=== PATIENT | female | born 1955 | race Caucasian/White ===

== ENCOUNTER → 2019-12-24 11:38 | Outpatient (CLI) | payer SELFPAY ==
[2016-12-26 09:17] VITALS: BMI 48.2
[2019-12-24 15:56] LABS: Anion Gap 7 (5-15); BUN 18 mg/dL (7-18); BUN/Creat Ratio 12.6 RATIO (10-20); Calcium,Total 9.5 mg/dL (8.5-10.1); Chloride 107 mmol/L (98-107); Cholesterol 359 mg/dL (200); Creatinine, Serum 1.43 mg/dL (0.55-1.02); EST Glomerular Filtration Rate 39 mL/min (>60); Est Glom Filt Rate - Afr Amer 47 mL/min (>60); Free T3 0.6 pg/mL (2.18-3.98); Glucose 126 mg/dL (74-106); High Density Lipoprotein 96 mg/dL; Potassium 3.6 mmol/L (3.5-5.1); Sodium Level 139 mmol/L (136-145); Triglycerides 199 mg/dL; Very Low Density Lipoprotein 40 mg/dL (5-40)
== END ==
PROVIDERS: PCP Family Medicine; Referring Provider Family Medicine; Visit Provider Family Medicine
DX: E03.9 Hypothyroidism, unspecified (principal); I10 Essential (primary) hypertension
CPT/HCPCS: 36415; 80048; 80061; 84439; 84443; 84481

== ENCOUNTER 2019-12-25 23:51 | Emergency (ER) | payer OTHER, SELFPAY ==
[2019-12-25 23:52] VITALS: BP 207/119; PULSE 80; RESP 16; TEMP 36.2; O2SAT 97; BMI 51.6
--- NOTE | 2019-12-26 01:00 | CT_ITS ---
STUDY: CT BRAIN WITHOUT CONTRAST REASON FOR EXAM: Female, 64 years old. HEADACHE AND CONGESTION -- HX:HTN,ASTHMA RADIATION DOSAGE (If Supplied By Facility): CTDIvol = ( 44.99 ) mGy, DLP = ( 812.98 ) mGycm TECHNIQUE: Transaxial CT imaging of the brain was performed without administration of intravenous contrast material. Individualized dose optimization techniques were used for this CT. COMPARISON: No relevant priors. FINDINGS: Normal soft tissue structures. Normal calvarium. Normal size ventricles and extra-axial spaces for the patient''s age. Normal white matter tracts of the cerebral hemispheres. Normal basal ganglia and thalami. Normal brainstem. Normal cerebellum. There is no intracranial hemorrhage. There are no findings of an acute ischemic infarction. Normal visualized paranasal sinuses. CT/Brain/Head without Contrast IMPRESSION: Normal unenhanced CT scan of the brain. Electronically Signed: Shimon Brar MD at 1:47 EDT , Service support ,
--- NOTE | 2019-12-26 01:00 | CT_ITS ---
STUDY: CT FACIAL BONES WITHOUT CONTRAST REASON FOR EXAM: Female, 64 years old. HEADACHE AND CONGESTION -- HX:HTN,ASTHMA RADIATION DOSAGE (If Supplied By Facility): CTDIvol = ( 29.38 ) mGy, DLP = ( 584.19 ) mGycm TECHNIQUE: The patient was scanned in a multi detector CT scanner. Sagittal and coronal images were reconstructed. Individualized dose optimization techniques were used for this CT. COMPARISON: None. FINDINGS: Normal soft tissue structures. Normal orbital multani and orbital contents. Normal nasal bones and anterior nasal spine. Normal facial bones. There is no demonstrated fracture. Normal visualized paranasal sinuses. CT/Sinus/Facial Bone IMPRESSION: Normal unenhanced CT of the facial bones. Electronically Signed: Shimon Brar MD at 1:39 EDT , Service support ,
--- NOTE | 2019-12-26 01:13 | ED.DCSUM_ITS ---
History of Present Illness Chief Complaint: Headache Informant: Patient, Family Onset: Today Context: Gradual Timing: Continuous Quality: Dull Location: top of head Current Severity: Gone Maximum Severity: Severe Worsened by: unk; nothing in particular Relieved by: ? by tylenol/motrin she took Associated Symptoms: Nausea, Sinus Pressure, Photophobia. Negative for: Fever, Vomiting, Sore Throat, Numbness, Visual Changes, Blurred Vision, Visual Loss Injury: - - NO injury Narrative: Patient states that she has been having sinus congestion, facial pressure, without rhinorrhea for about 3 weeks causing off and on headaches on top of her head in addition to pain behind her nose. Today, the headache was especially severe and she states it was the worst headache she ever had. She saw her doctor yesterday, in addition to today after she had the severe headache that currently is gone. She states as a result, blood work was done for thyroid function because she stopped taking the medication months ago along with her blood pressure medication, and told that her thyroid hormone was very low and she needed to take it, so she is now back on her thyroid medication, and she was told that the headaches were probably related to her low thyroid. She was additionally placed on a Z-Sreedhar in case she had a bacterial sinusitis, presumably. She has taken 2 doses of that so far. She denies any neurologic symptoms along with her headaches, such as vision changes, focal peripheral neurologic symptoms, loss of consciousness, trouble speaking. In discussing all this with the patient, she agrees that she feels like she has been having sinus symptoms, which she states she gets annually around this time. She has also been using Afrin with some relief temporarily of the sinus symptoms and headache. Since she does not have a headache right now, I discussed the likelihood that her sinus congestion is causing her headaches, and asked if she wanted to discuss anything else. Daughter suggested that she may be needed a CT scan, which I told the patient I was happy to do, then she said that she did not have insurance and did not want that. - Past Medical History (1) Renal insufficiency Status: Chronic (2) Asthma Status: Chronic (3) Hypertension Status: Chronic (4) Hypothyroidism Status: Chronic (5) Pre-diabetes Status: Chronic Past Medical History - Allergies and Home Meds Allergies/Adverse Reactions: Allergies codeine Allergy (Verified 12/25/19 23:51) Unknown prochlorperazine edisylate [From Compazine] Allergy (Verified 12/25/19 23:51) Anaphylaxis prochlorperazine maleate [From Compazine] Allergy (Verified 12/25/19 23:51) Anaphylaxis Penicillins Adverse Reaction (Verified 12/25/19 23:51) Other Primary Care Physician: Bruce De La Garza MD [Primary Care Provider] - Surgical History: cholecystectomy, hysterectomy, total knee arthroplasty Lives: Alone Smoking Status: Never smoker Alcohol: None Drugs: None - Family History Maternal Family History: Reports: No pertinent history Paternal Family History: Reports: No pertinent history Review of Systems General: Denies: Chills, Fever, Sweats Eyes: Reports: - - photophobia. Denies: Visual changes - bilaterally, Diplopia ENT: Denies: Bilateral ear pain, Rhinorrhea - no runny nose due to so congested, Sore throat Cardiovascular: Denies: Chest pain, Palpitations Respiratory: Denies: Dyspnea, Cough, Dyspnea on exertion Gastrointestinal: Reports: Nausea. Denies: Abdominal pain, Vomiting, Diarrhea, Melena, Hematochezia Genitourinary: Denies: Dysuria, Hematuria, Frequency Musculoskeletal: Reports: Swelling - BLE. Denies: Myalgias, Neck pain, Extremity Pain Skin: Denies: Rash, Wounds Neurological: Reports: Headache. Denies: Weakness, Numbness Physical Exam Vital Signs/Narrative: Vital Signs Temp Pulse Resp BP Pulse Ox 12/25/19 23:52 97.2 F L 80 16 207/119 H 97 Inital Vital Signs reviewed: Yes General: Well nourished, Well developed, Obese, - - NAD Head: NC, AT. Negative for: Temporary Artery Tenderness Eyes: Perrl, EOMI ENT: Moist mucous membranes, No rhinorrhea, TM's clear, Sinus tenderness - ethmoid and frontal bilat, - - Bilateral nasal turbinate edema without purulent discharge or other discharge or other lesion. Posterior oropharynx clear. Neck: Supple, No Lymphadenopathy, Nontender Cardiovascular: Regular rate, Regular rhythm, No murmurs Respiratory: No distress, CTA bilaterally, Chest nontender Abdomen: Soft, Nontender, Nondistended, Normal bowel sounds Back: Nontender, Normal Inspection. Negative for: CVA tenderness Extremities: Nontender, No edema Skin: Normal color, No rash, No Trauma Neuro: Alert, Oriented x3, Cranial nerves II-XII grossly intact, Normal Strength, Normal Sensation, Normal DTR, Normal Gait Psychological: Normal affect Diagnostic/Tx/Re-eval Impressions Brain CT 12/26/19 01:00 IMPRESSION: Normal unenhanced CT scan of the brain. Electronically Signed: Shimon Brar MD at 1:47 EDT , Service support , Facial/Sinus 12/26/19 01:00 IMPRESSION: Normal unenhanced CT of the facial bones. Electronically Signed: Shimon Brar MD at 1:39 EDT , Service support , 12/26/19 01:00 Brain/Head without Contrast [CT] Stat Sinus/Facial Bone [CT] Stat Laboratory Results 12/26/19 00:15 WBC 5.8 RBC 4.78 Hgb 14.3 Hct 43.4 MCV 90.8 MCH 29.9 MCHC 32.9 RDW Std Deviation 48.2 H RDW Coeff of David 14.6 Plt Count 286 MPV 9.8 Immature Gran % (Auto) 0.900 Neut % (Auto) 61.0 Lymph % (Auto) 28.1 Jefferson % (Auto) 5.5 Eos % (Auto) 3.6 Baso % (Auto) 0.9 Absolute Neuts (auto) 3.5 Absolute Lymphs (auto) 1.63 Nucleated RBC % 0 - Medical Decision Making After patient refusing CT scan, and daughter wanting it, I left the room and told them to talk about it and I would return. We had more discussion later and I talked with the daughter alone. She is concerned that the patient is disoriented at time and acting funny, which is not like her. Also that she discontinued her medications for months because somebody told her to do so. This includes lisinopril 20 mg and her thyroid medication which she is now taking again. Her blood pressure was very high when she was here in triage, 207. On recheck it is in the 170s. I told the patient that I thought she should have a CT scan given all of this, and she was amenable to it I had her brain and sinuses scanned. They returned negative/normal. I added a CBC, it returned normal. She had a BMP that showed mild renal insufficiency a little worse than usual, and thyroid function performed yesterday, I reviewed those and did not repeat those. She was given Reglan because she had retro-orbital pain on the left, that improved after Reglan. I discussed with the patient if she thinks she is feeling confused or disoriented, she states adamantly no. I asked her if she was having any hallucinations she states no. She states over and over that God has rebuilt her ever since her 3 years ago, she is walking now when she was not able to prior to his , these are some of the things that the daughter is concerned about, saying that she is not mentally right. We discussed the possibility that her blood pressure could be related, but there is no sign of a lacune, or other stroke, or white-moffett matter differentiation problems on CT, and her blood pressure is not life-threatening high right now. She states that indeed her doctor did restart her on her lisinopril within the last 2 days. At this time, as I discussed with the daughter, I have no reason to admit her or to pink slipped her. It is unknown if there is something psychiatrically abnormal here, or if her blood pressure is related, or if this is her new normal. However, one of the concerning things the daughter said was that the patient was suggesting that someone was doing surgery on her in the middle of the night repeatedly. I asked the patient if she was having any hallucinations or thought she was disoriented, and she states no to all of that. I have no reason to pink slip her right now legally, and medically I see no reason to admit her to the hospital, her blood pressure will likely come down as she stays on her lisinopril for at least the next few days, it is unknown what it was in the office. I discussed all this with the daughter she understands, also discussed it with Dr. Kain Rush who was on-call for Dr. De La Garza, will pass along and agrees at the patient to be seen in the next week or 2 for at least a blood pressure recheck, rather than 6 months from now. With regards to her sinus congestion, I think some of it at least is related to her continuing to use Afrin having some rebound congestion, I recommend stopping that, and using Flonase daily, and nothing else for her congestion right now. I advised that she could probably discontinue the azithromycin but that is up to her. ED Disposition - Plan for ED Patient: Disposition: Home or Assisted Living Diagnosis: Accelerated hypertension, Cephalgia, Hypothyroidism Instructions: ED Headache Unspecified, ED Hypothyroidism Referrals: Bruce De La Garza MD [Primary Care Provider] - (Within the next week; call for appointment)
[2019-12-26] MEDS: Metoclopramide 10 MG/2 ML Vial 5 MG IV (01:15)
[2019-12-26 01:28] LABS: Absolute Lymphocyte Count 1.63 X10^3/uL (0.83-4.51); Absolute Neutrophil Count 3.5 X10^3/uL (2.0-7.7); Basophil# 0.05 X10^3/uL; Basophil% 0.9 % (0-1); Eosinophil# 0.21 X10^3/uL; Eosinophils% 3.6 % (0-5); Hematocrit 43.4 % (37-47); Hemoglobin 14.3 g/dL (12.0-15.0); Lymphocyte # 1.63 X10^3/ul (4.0); Lymphocyte % 28.1 % (19-41); Mean Corp Hgb Conc 32.9 g/dL (32-36); Mean Corpuscular Hgb 29.9 pg (27.0-32.0); Mean Corpuscular Volume 90.8 fL (81-99); Mean Platelet Vol. 9.8 fl (6.2-12.0); Monocyte# 0.32 X10^3/uL; Monocyte% 5.5 % (0-10); NRBC Flagged by Analyzer 0 % (0-5); Neutrophil # 3.54 X10^3/uL (2.7-7.7); Platelet Count 286 K/mm3 (150-450); RBC Distribution Width CV 14.6 % (11.6-14.6); RBC Distribution Width SD 48.2 fl (35.1-43.9); Red Blood Count 4.78 M/mm3 (4.2-5.4); White Blood Count 5.8 K/mm3 (4.4-11.0)
[2019-12-26 01:32] VITALS: BP 171/77
[2019-12-26 02:27] VITALS: BP 173/80; PULSE 78; RESP 16; O2SAT 97
== END 2019-12-26 02:36 | disposition home or self-care (01) ==
PROVIDERS: Emergency Provider Emergency Medicine; PCP Family Medicine
DX: I10 Essential (primary) hypertension (principal); R51.9 Headache, unspecified; E03.9 Hypothyroidism, unspecified; Z91.14 Patient's other noncompliance with medication regimen; E66.9 Obesity, unspecified; R73.03 Prediabetes; N28.9 Disorder of kidney and ureter, unspecified; J45.909 Unspecified asthma, uncomplicated; Z90.49 Acquired absence of other specified parts of digestive tract; Z79.82 Long term (current) use of aspirin; Z79.84 Long term (current) use of oral hypoglycemic drugs; Z79.899 Other long term (current) drug therapy
CPT/HCPCS: 36415; 70450; 70486; 85025; 96374; 99282; 99285; A4216

== ENCOUNTER → 2020-06-23 12:39 | Outpatient (CLI) | payer SELFPAY ==
[2020-06-23 15:40] LABS: AST(SGOT) 13 U/L (15-37); Alanine Aminotransfer ALT/SGPT 25 U/L (13-56); Albumin, Serum 3.6 g/dL (3.2-5.0); Alkaline Phosphatase 78 U/L (45-117); Anion Gap 2 (5-15); BUN 24 mg/dL (7-18); BUN/Creat Ratio 21.4 RATIO (10-20); Calcium,Total 9.3 mg/dL (8.5-10.1); Chloride 109 mmol/L (98-107); Cholesterol 212 mg/dL (200); Creatinine, Serum 1.12 mg/dL (0.55-1.02); EST Glomerular Filtration Rate 52 mL/min (>60); Est Glom Filt Rate - Afr Amer 63 mL/min (>60); Free T3 2.5 pg/mL (2.18-3.98); Globulin 3.7 g/dL (2.2-4.2); Glucose 93 mg/dL (74-106); High Density Lipoprotein 64 mg/dL; Potassium 4.8 mmol/L (3.5-5.1); Protein, Total 7.3 g/dL (6.4-8.2); Sodium Level 136 mmol/L (136-145); T4 Free Direct 1.45 ng/dL (0.76-1.46); Thyroid Stim Hormone (TSH) 0.32 uIU/mL (0.358-3.74); Triglycerides 160 mg/dL; Very Low Density Lipoprotein 32 mg/dL (5-40)
== END ==
PROVIDERS: PCP Family Medicine; Referring Provider Family Medicine; Visit Provider Family Medicine
DX: B35.1 Tinea unguium (principal); E03.9 Hypothyroidism, unspecified; I10 Essential (primary) hypertension
CPT/HCPCS: 36415; 80053; 80061; 84439; 84443; 84481

== ENCOUNTER → 2022-02-23 | Outpatient (CLI) | payer MEDICARE, SELFPAY ==
[2022-02-23 15:48] LABS: Anion Gap 10 (5-15); BUN 17 mg/dL (7-18); BUN/Creat Ratio 11.7 RATIO (10-20); Calcium,Total 9.9 mg/dL (8.5-10.1); Chloride 104 mmol/L (98-107); Cholesterol 329 mg/dL (200); Creatinine, Serum 1.45 mg/dL (0.55-1.02); EST Glomerular Filtration Rate 38 mL/min (>60); Est Glom Filt Rate - Afr Amer 46 mL/min (>60); Free T3 0.9 pg/mL (2.18-3.98); Glucose 151 mg/dL (74-106); High Density Lipoprotein 100 mg/dL; Sodium Level 139 mmol/L (136-145); T4 Free Direct 0.22 ng/dL (0.76-1.46); Triglycerides 149 mg/dL; Very Low Density Lipoprotein 30 mg/dL (5-40)
== END | disposition home or self-care (01) ==
LOC: MFPLAB 13:52
PROVIDERS: PCP Family Medicine; Referring Provider Family Medicine; Visit Provider Family Medicine
DX: I10 Essential (primary) hypertension (principal); E03.9 Hypothyroidism, unspecified
CPT/HCPCS: 36415; 80048; 80061; 84439; 84443; 84481

== ENCOUNTER → 2023-03-13 | Outpatient (CLI) | payer SELFPAY ==
--- OUTSIDE RECORDS SUMMARY | 2023-03-13 13:36 | XMS RPT_ITS | CCD ---
Author Name Unknown Address [address] [place] [address] Organization [facility] Care Team Providers Care Care Coordination Manager Name Role Phone Clifford Sherman Unavailable GarciaEliza sena Johnny Unavailable Allergies Allergy Classification Reported Allergen(s) Allergy Type Date of Onset Reaction(s) Facility (3 sources) acetaminophen / codeine Drug Allergy 4 [facility] Work Phone: (3 sources) aspirin Drug Allergy [facility] Work Phone: (3 sources) cortisone Drug Allergy [facility] Work Phone: (3 sources) penicillin Drug Allergy [facility] Work Phone: (3 sources) prochlorperazine Drug Allergy 4 [facility] Work Phone: Medications Completed/Discontinued Medications Medication Drug Class(es) Dates Sig (Normalized) Sig (Original) 200 actuat albuterol 0.09 mg/actuat metered dose inhaler (3 sources) beta2-Adrenergic Agonist PROAIR HFA 108 (90 Base) MCG/ACT AERS 2 puffs ALBUTEROL SULFATE [id number] Ana Hubbard ENVIRONMENTAL EPIDEMIOLOGIST cefadroxil 1000 mg oral tablet (5 sources) Cephalosporin Antibacterial Start: 03-09-2014 End: 02-07-2017 CEFADROXIL 1 GM TABS one twice daily CEFADROXIL [id number] Denae Kam MD DIPHENHYDRAMINE HCL TABS (5 sources) Histamine-1 Receptor Antagonist End: 02-07-2017 BENADRYL TABS q every night prn DIPHENHYDRAMINE HCL TABS [id number] Clifford Sherman Problems Active Problems Problem Classification Problem Date Documented Da te Episodic/Chronic Acute and unspecified renal failure (6 sources) Renal failure syndrome; Translations: [Disorder of kidney and ureter, unspecified] Onset: 03-09-2014 Resolved: 03-11-2014 03-11-2014 Chronic Joint disorders and dislocations; trauma-related (3 sources) Loose body in knee; Translations: [Loose body in knee, unspecified knee] Onset: 01-13-2014 01-14-2014 Chronic Osteoarthritis (7 sources) Localized, primary osteoarthritis; Translations: [Osteoarthritis of knee] Onset: 01-13-2014 02-08-2017 Chronic Other nutritional; endocrine; and metabolic disorders (2 sources) Obesity; Translations: [Obesity, unspecified] Onset: 02-07-2017 02-08-2017 Chronic Past or Other Problems Problem Classification Problem Date Documented Da te Episodic/Chronic Other non-traumatic joint disorders (3 sources) Knee pain; Translations: [Pain in unspecified knee] Onset: 01-13-2014 01-13-2014 Episodic Phlebitis; thrombophlebitis and thromboembolism (2 sources) Deep venous thrombosis; Translations: [Acute embolism and thrombosis of unspecified vein] Onset: 02-07-2017 02-08-2017 Episodic Unclassified (2 sources) Family history of alcoholism; Translations: [Family history of alcohol abuse and dependence] 02-07-2017 Episodic Results Test Name Value Interpretation Reference Range Facil ity Vital Signs Date Time Vital Sign Value Performing Clinician Facility 02-07-2017 15:28-0500 BMI (Body Mass Index) 53.62 kg/m2 [facility] Work Phone: 02-07-2017 15:28-0500 Weight 141.7 kg [facility] Work Phone: 03-09-2014 16:12-0500 Body Temperature 98.6 [degF] Eliza [facility] Work Phone: 03-09-2014 16:12-0500 BP Diastolic 88 mm[Hg] Eliza [facility] Work Phone: 03-09-2014 16:12-0500 BP Systolic 151 mm[Hg] [facility] Work Phone: 03-09-2014 16:12-0500 Pulse (Heart Rate) 99 /min [facility] Work Phone: 03-09-2014 16:12-0500 Respiratory Rate 20 /min [facility] Work Phone: 03-09-2014 16:12-0500 Weight 129.91 kg [facility] Work Phone: 01-13-2014 14:29-0500 BMI (Body Mass Index) 49.77 kg/m2 [facility] Work Phone: 01-13-2014 14:29-0500 Height 162.56 cm [facility] Work Phone: Plan of Treatment Date Care Activity Detail Author Start: 02-07-2017 End: 02-07-2017 Appointment Appointment [facility] Work Phone: Start: 01-13-2014 End: 01-13-2014 Radiologic exam knee complete 4/more views X-Ray, Knee [facility] Work Phone: Additional Source Comments FOR RECORDS PERTAINING TO PATIENTS WHO ARE OR HAVE BEEN ENROLLED IN A CHEMICAL DEPENDENCY/SUBSTANCEABUSE PROGRAM, SOME INFORMATION MAY BE OMITTED. This clinical summary was aggregated from multiple sources. Caution should be exercised in using it in the provision of clinical care. This summary normalizes information from multiple sources, and as a consequence, information in this document may materially change the coding, format and clinical context of patient data. In addition, data may be omitted in some cases. CLINICAL DECISIONS SHOULD BE BASED ON THE PRIMARY CLINICAL RECORDS. [facility]. provides no warranty or guarantee of the accuracy or completeness of information in this document.
[2023-03-13 15:45] LABS: Anion Gap 8 (5-15); BUN 21 mg/dL (7-18); BUN/Creat Ratio 17.6 RATIO (10-20); Calcium,Total 9.3 mg/dL (8.5-10.1); Chloride 109 mmol/L (98-107); Cholesterol 186 mg/dL (200); Creatinine, Serum 1.19 mg/dL (0.55-1.02); EST Glomerular Filtration Rate 48 mL/min (>60); Est Glom Filt Rate - Afr Amer 58 mL/min (>60); Glucose 133 mg/dL (74-106); High Density Lipoprotein 51 mg/dL; Potassium 4.1 mmol/L (3.5-5.1); Sodium Level 142 mmol/L (136-145); T4 Total, Thyroxin 19.8 ug/dL (4.8-13.9); Thyroid Stim Hormone (TSH) 1.11 uIU/mL (0.358-3.74); Triglycerides 224 mg/dL; Very Low Density Lipoprotein 45 mg/dL (5-40)
[2023-03-13 16:05] LABS: Microalbumin:Creatinine Ratio 705.9 mg/g CRE (<30 mg/g CRE)
== END | disposition home or self-care (01) ==
PROVIDERS: PCP Family Medicine; Referring Provider Family Medicine; Visit Provider Family Medicine
DX: I10 Essential (primary) hypertension (principal); E03.9 Hypothyroidism, unspecified
CPT/HCPCS: 36415; 80048; 80061; 82043; 82570; 84436; 84443

== ENCOUNTER → 2023-07-30 | Outpatient (CLI) | payer SELFPAY ==
[2023-07-30 18:47] LABS: Anion Gap 12 (5-15); BUN 27 mg/dL (7-18); BUN/Creat Ratio 20.1 RATIO (10-20); Calcium,Total 9.9 mg/dL (8.5-10.1); Chloride 105 mmol/L (98-107); Cholesterol 226 mg/dL (200); Creatinine, Serum 1.34 mg/dL (0.55-1.02); EST Glomerular Filtration Rate 42 mL/min (>60); Est Glom Filt Rate - Afr Amer 51 mL/min (>60); Glucose 121 mg/dL (74-106); High Density Lipoprotein 61 mg/dL; Potassium 3.8 mmol/L (3.5-5.1); Sodium Level 140 mmol/L (136-145); Thyroid Stim Hormone (TSH) 3.68 uIU/mL (0.358-3.74); Triglycerides 295 mg/dL; Very Low Density Lipoprotein 59 mg/dL (5-40)
== END | disposition home or self-care (01) ==
PROVIDERS: PCP Family Medicine; Referring Provider Family Medicine; Visit Provider Family Medicine
DX: I10 Essential (primary) hypertension (principal); E03.9 Hypothyroidism, unspecified
CPT/HCPCS: 36415; 80048; 80061; 84443

== ENCOUNTER → 2024-10-29 | Outpatient (CLI) | payer MEDICARE, SELFPAY ==
[2024-10-29 18:26] LABS: AST(SGOT) 24 U/L (<=31); Alanine Aminotransfer ALT/SGPT 27 U/L (<=34); Albumin, Serum 4.3 g/dL (3.4-4.8); Alkaline Phosphatase 83 U/L (35-104); Anion Gap 17 (5-15); BUN 21 mg/dL (4-19); BUN/Creat Ratio 14.5 RATIO (10-20); Calcium,Total 10.1 mg/dL (7.6-11.0); Carbon Dioxide 23.1 mmol/L (21.0-32.0); Chloride 102 mmol/L (98-108); Cholesterol 226 mg/dL (<=200); Free T3 2.7 pg/mL (2.18-3.98); Globulin 3.1 g/dL (2.2-4.2); Glucose 132 mg/dL (70-99); Low Density Lipoprotein Calc. 116 mg/dL; Potassium 4.4 mmol/L (3.3-5.1); Triglycerides 191 mg/dL; Very Low Density Lipoprotein 38 mg/dL (5-40); cholesterol:hdl ratio screen 3.13
== END | disposition home or self-care (01) ==
PROVIDERS: PCP Family Medicine; Referring Provider Family Medicine; Visit Provider Family Medicine
DX: E03.9 Hypothyroidism, unspecified (principal); R73.9 Hyperglycemia, unspecified; I10 Essential (primary) hypertension
CPT/HCPCS: 36415; 80053; 80061; 83036; 84439; 84443; 84481

== ENCOUNTER → 2025-01-12 | Outpatient (CLI) | payer MEDICARE, SELFPAY ==
--- NOTE | 2025-01-12 10:22 | BI_ITS ---
EXAM: SCRN MAMM (CAD)W/ARIANNE BILAT DATE: 01/12/2025 CLINICAL HISTORY: F, Age 69 y/o , SCREENING TECHNIQUE: Procedure Code: [id number] Modality: MG Procedure: SCRN MAMM (CAD)W/ARIANNE BILAT COMPARISON: Prior exam(s) were compared FINDINGS: TISSUE DENSITY: There are scattered areas of fibroglandular density. Bilateral Breast Mammographic Findings: No significant masses, calcifications or other abnormalities are identified. BI/SCRN MAMM (CAD)W/ARIANNE BILAT IMPRESSION: No mammographic evidence of malignancy. OVERALL FINAL ASSESSMENT BI-RADS 1: NEGATIVE. RECOMMENDATION: Routine annual follow-up in 1 Year Additional Recommendation none A letter with findings and recommendations will be mailed to the patient. Reading Location: [id number]
--- OUTSIDE RECORDS SUMMARY | 2025-01-12 12:47 | XMS RPT_ITS | CCD ---
Author Organization [facility] Care Team Providers Care Glaze Carrier Name Role Phone Clifford Sherman Unavailable Radha Eliza Johnny Unavailable Frederic SORTO, Dr. Barrera Primary Care Provider [phone] Frederic SORTO, Dr. Barrera Attending Provider [phone] Frederic SORTO, Dr. Barrera Referring Provider Bruce De La Garza Referring Unavailable Bruce De La Garza Attending Unavailable Bruce De La Garza Primary Care Unavailable Allergies Allergy Classification Reported Allergen(s) Allergy Type Date of Onset Reaction(s) Facility (3 sources) acetaminophen / codeine Drug Allergy 01-14-[address] [facility] Work Phone: (3 sources) aspirin Drug Allergy [facility] Work Phone: (3 sources) cortisone Drug Allergy [facility] Work Phone: (3 sources) penicillin Drug Allergy [facility] Work Phone: (3 sources) prochlorperazine Drug Allergy 03-09-[address] [facility] Work Phone: (3 sources) Codeine Drug Allergy 12-25-19 Unknown [facility] (3 sources) Penicillins Propensity to adverse reactions 12-25-19 Other [facility] (4 sources) Prochlorperazine; Translations: [prochlorperazine maleate] Drug Allergy 12-25-19 Anaphylaxis [facility] (4 sources) prochlorperazine edisylate; Translations: [prochlorperazine edisylate] Allergy to substance 12-25-19 Anaphylaxis [facility] (1 source) Codeine Drug Allergy 12-25-19 [facility] Repository (1 source) Penicillins Drug allergy (disorder) 12-25-19 [facility] Repository Medications Current Medications Medication Drug Class(es) Dates Sig (Normalized) Sig (Original) [id number] 200 actuat albuterol 0.09 mg/actuat metered dose inhaler (6 sources) beta2-Adrenergic Agonist Start: 12-26-2019 Albuterol Sulfate 1 INHALER inhaler Active 2 NMA INHALATION EVERY 4 HOURS NEEDED as needed for Wheezing December 26, 2019 12:00am Start: 12-26-2019 take 1 puff(s) by in halation every four hours as needed Albuterol Sulfate Active 2 PUFF INHALATION EVERY 4 HOURS NEEDED December 25, 2019 11:00pm PROAIR HFA 108 ( 90 Base) MCG/ACT AERS 2 puffs ALBUTEROL SULFATE [id number] Ana Hubbard LPN aspirin 81 mg delayed release oral tablet (3 sources) Platelet Aggregation Inhibitor, Nonsteroidal Anti-inflammatory Drug Start: 12-26-2016 take 1 tablet by mouth once daily Aspirin 81 MG tablet Active 81 mg PO DAILY@0800 December 26, 2016 12:00am azithromycin 250 mg oral tablet (3 sources) Macrolide Antimicrobial Start: 12-26-2019 Azithromycin 250 MG tablet Active 1 {tbl} PO DAILY December 26, 2019 12:00am lisinopril 20 mg oral tablet (6 sources) Angiotensin Converting Enzyme Inhibitor Start: 12-24-2013 take 1 tablet by mouth once daily Lisinopril 20 MG tablet Active 20 mg PO DAILY 30 0 December 24, 2013 12:00am metFORMIN hydrochloride 500 mg oral tablet (6 sources) Biguanide Start: 11-23-2013 take 1 tablet by mouth twice daily at mealtime Metformin 500 MG tablet Active 500 mg PO TWICE DAILY WITH MEALS November 23, 2013 12:00am levothyroxine sodium 0.15 mg oral tablet (9 sources) l-Thyroxine Start: 12-24-2013 take 1 tablet by mouth once daily Levothyroxine 150 MCG tablet Active 150 ug PO DAILY 30 0 December 24, 2013 12:00am Start: 11-23-2013 End: 12-24-2013 take 2 tablets by mouth once daily Levothyroxine 112 MCG tablet Discontinued 224 ug PO DAILY November 23, 2013 12:00am December 24, 2013 1:27pm Start: 11-23-2013 End: 12-24-2013 take 224 ug by mouth once daily Levothyroxine Disconti nued 224 MCG PO DAILY November 22, 2013 11:00pm December 24, 2013 12:27pm Completed/Discontinued Medications Medication Drug Class(es) Dates Sig (Normalized) Sig (Original) cefadroxil 1000 mg oral tablet (5 sources) Cephalosporin Antibacterial Start: 03-09-2014 End: 02-07-2017 CEFADROXIL 1 GM TABS one twice daily CEFADROXIL [id number] Denae Kam MD cefdinir 300 mg oral capsule (3 sources) Cephalosporin Antibacterial Start: 12-24-2013 End: 12-24-2013 take 1 capsule by mouth every twelve hours Cefdinir 300 MG capsule Discontinued 300 mg PO Q12H December 24, 2013 12:00am December 24, 2013 1:49pm DIPHENHYDRAMINE HCL TABS (5 sources) Histamine-1 Receptor Antagonist End: 02-07-2017 BENADRYL TABS q every night prn DIPHENHYDRAMINE HCL TABS [id number] Clifford Sherman BENADRYL TABS q every night prn DIPHENHYDRAMINE HCL TABS [id number] Ana Hubbard [employer] 14 actuat fluticasone propionate 0.25 mg/actuat / salmeterol 0.05 mg/actuat dry powder inhaler (6 sources) Corticosteroid, beta2-Adrenergic Agonist End: 03-09-2014 ADVAIR DISKUS 250-50 MCG/DOSE AEPB 1 puff bid FLUTICASONE-SALMETEROL [id number] Ana Hubbard [employer] 120 actuat formoterol fumarate 0.005 mg/actuat / mometasone furoate 0.1 mg/actuat metered dose inhaler (5 sources) Corticosteroid, beta2-Adrenergic Agonist End: 02-07-2017 DULERA 100-5 MCG/ACT AERO MOMETASONE FURO-FORMOTEROL FUM [id number] Denae Kam MD hydroCHLOROthiazide 25 mg / lisinopril 20 mg oral tablet (5 sources) Thiazide Diuretic, Angiotensin Converting Enzyme Inhibitor End: 02-07-2017 take 1 tablet by mouth once daily ZESTORETIC 20-25 MG TABS One tablet by mouth daily LISINOPRIL-HYDROCHLOROTH IAZIDE [id number] Clifford Sherman loperamide hydrochloride 2 mg oral capsule (2 sources) Opioid Agonist Start: 02-07-2017 LOPERAMIDE HCL 2 MG CAPS LOPERAMIDE HCL [id number] Clifford Sherman ondansetron 4 mg oral tablet (2 sources) Serotonin-3 Receptor Antagonist Start: 02-07-2017 ZOFRAN 4 MG TABS ONDANSETRON HCL [id number] Clifford Sherman traMADol hydrochloride 50 mg oral tablet (6 sources) Opioid Agonist End: 03-09-2014 take 2 tablets by mouth every six hours as needed TRAMADOL HCL 50 MG TABS 100mg po q 6 hrs prn TRAMADOL HCL [id number] Denae Kam MD triamcinolone acetonide 1 mg/ml topical cream (8 sources) Corticosteroid Start: 03-09-2014 End: 02-07-2017 TRIAMCINOLONE ACETONIDE 0.1 % CREA twice daily as needed TRIAMCINOLONE ACETONIDE [id number] Denae Kam MD Problems Active Problems Problem Classification Problem Date Documented Da te Episodic/Chronic Acute and unspecified renal failure (6 sources) Renal failure syndrome; Translations: [Disorder of kidney and ureter, unspecified] Onset: 03-09-2014 Resolved: 03-11-2014 03-11-2014 Chronic Asthma (3 sources) Asthma; Translations: [Unspecified asthma, uncomplicated] 12-26-2019 Chronic Diabetes mellitus without complication (3 sources) Prediabetes; Translations: [Prediabetes] 12-26-2019 Episodic Essential hypertension (6 sources) Malignant hypertension; Translations: [Essential (primary) hypertension] 12-27-2019 Chronic Headache; including migraine (3 sources) Headache; Translations: [Headache] 12-27-2019 Episodic Joint disorders and dislocations; trauma-related (3 sources) Loose body in knee; Translations: [Loose body in knee, unspecified knee] Onset: 01-13-2014 01-14-2014 Chronic Osteoarthritis (7 sources) Localized, primary osteoarthritis; Translations: [Osteoarthritis of knee] Onset: 01-13-2014 02-08-2017 Chronic Other diseases of kidney and ureters (3 sources) Renal impairment; Translations: [Disorder of kidney and ureter, unspecified] 12-26-2019 Episodic Other nutritional; endocrine; and metabolic disorders (2 sources) Obesity; Translations: [Obesity, unspecified] Onset: 02-07-2017 02-08-2017 Chronic Septicemia (except in labor) (3 sources) Sepsis; Translations: [Sepsis, unspecified organism] 12-26-2019 Episodic Skin and subcutaneous tissue infections (3 sources) Cellulitis of lower limb; Translations: [Cellulitis of left lower limb] 12-26-2019 Episodic Thyroid disorders (4 sources) Hypothyroidism; Translations: [Hypothyroidism, unspecified] Onset: 11-05-2024 12-26-2019 Chronic Past or Other Problems Problem Classification [...] Results Test Name Value Interpretation Reference Range Facility Anion gap in Serum or Plasma Ordered By: Bruce De La Garza on 10-29-2024 Anion gap [Moles/Vol] 17 mmol/L High 07-24 [facility] BUN/creatinine ratioOrdered By: Bruce De La Garza on 10-29-2024 Urea nitrogen/Creatinine [Mass ratio] 14.5 mg/mg 12-29 [facility] Bilirubin, totalOrdered By: Bruce De La Garza on 10-29-2024 Bilirubin [Mass/Vol] 0.37 mg/dL 0.00-1.30 [facility] Calculated very low density lipoprotein (VLDL) cholesterol measurementOrdered By: Bruce De La Garza on 10-29-2024 Calculated very low density lipoprotein (VLDL) cholesterol measurement 38 mg/dL [facility] Carbon dioxide, total [Moles /volume] in Central venous bloodOrdered By: Bruce De La Garza on 10-29-2024 CO2 [Moles/Vol] 23.1 mmol/L 21.0-32.0 [facility] Chloride assayOrdered By: Royal De La Garza on 10-29-2024 Chloride [Moles/Vol] 102 mmol/L 98-108 [facility] Comprehensive Metabolic Prof ilon 10-29-2024 Albumin [Mass/Vol] 4.3 g/dL Normal 3.4-4.8 [facility] Comment on above: Performed By: #### L 506.0400, L501.9985, L501.9520, L501.40405, L500.4050, L500.4100 #### [facility] [address] [place], [address] Albumin/Globulin [Mass ratio] 1.4 {ratio} Normal 0.9-2.4 [facility] Comment on above: Performed By: #### L 506.0400, L501.9985, L501.9520, L501.39598, L500.4050, L500.4100 #### [facility] [address] [place], [address] ALK PHOS 83 U/L Normal 35-104 [facility] Comment on above: Performed By: #### L 506.0400, L501.9985, L501.9520, L501.49505, L500.4050, L500.4100 #### [facility] [address] [place], [address] ALT [Catalytic activity/Vol] 27 U/L Normal <=34 [facility] Comment on above: Performed By: #### L 506.0400, L501.9985, L501.9520, L501.73880, L500.4050, L500.4100 #### [facility] [address] [place], [address] AST [Catalytic activity/Vol] 24 U/L Normal <=31 [facility] Comment on above: Performed By: #### L 506.0400, L501.9985, L501.9520, L501.73713, L500.4050, L500.4100 #### [facility] [address] [place], [address] Bilirubin [Mass/Vol] 0.37 mg/dL Normal 0.00-1.30 [facility] Comment on above: Performed By: #### L 506.0400, L501.9985, L501.9520, L501.73160, L500.4050, L500.4100 #### [facility] [address] [place], [address] BUN/CRE 14.5 RATIO Normal 10-20 [facility] Comment on above: Performed By: #### L 506.0400, L501.9985, L501.9520, L501.58998, L500.4050, L500.4100 #### [facility] [address] [place], [address] Calcium [Mass/Vol] 10.1 mg/dL Normal 7.6-11.0 [facility] Comment on above: Performed By: #### L 506.0400, L501.9985, L501.9520, L501.37362, L500.4050, L500.4100 #### [facility] [address] [place], [address] Chloride [Moles/Vol] 102 mmol/L Normal 98-108 [facility] Comment on above: Performed By: #### L 506.0400, L501.9985, L501.9520, L501.24415, L500.4050, L500.4100 #### [facility] [address] [place], [address] CO2 [Moles/Vol] 23.1 mmol/L Normal 21.0-32.0 [facility] Comment on above: Performed By: #### L 506.0400, L501.9985, L501.9520, L501.94649, L500.4050, L500.4100 #### [facility] [address] [place], [address] Creatinine [Mass/Vol] 1.46 mg/dL High 0.70-1.20 [facility] Comment on above: Performed By: #### L 506.0400, L501.9985, L501.9520, L501.22302, L500.4050, L500.4100 #### [facility] [address] [place], [address] GAP 17 High 5-15 [facility] Comment on above: Performed By: #### L 506.0400, L501.9985, L501.9520, L501.53141, L500.4050, L500.4100 #### [facility] [address] [place], [address] GFR/1.73 sq M.predicted among non-blacks MDRD (S/P/Bld) [Vol rate/Area] 39 mL/min/{1.73_m2} Low >60 [facility] Comment on above: Result Comment: mL/m in/1.73m2 CKD-EPI Creatinine Equation (2020) Performed By: #### L 506.0400, L501.9985, L501.9520, L501.31115, L500.4050, L500.4100 #### [facility] [address] [place], [address] Globulin (S) [Mass/Vol] 3.1 g/dL Normal 2.2-4.2 [facility] Comment on above: Performed By: #### L 506.0400, L501.9985, L501.9520, L501.61330, L500.4050, L500.4100 #### [facility] [address] [place], [address] Glucose [Mass/Vol] 132 mg/dL High 70-99 [facility] Comment on above: Performed By: #### L 506.0400, L501.9985, L501.9520, L501.78137, L500.4050, L500.4100 #### [facility] [address] [place], [address] Potassium [Moles/Vol] 4.4 mmol/L Normal 3.3-5.1 [facility] Comment on above: Performed By: #### L 506.0400, L501.9985, L501.9520, L501.89919, L500.4050, L500.4100 #### [facility] [address] [place], [address] Sodium [Moles/Vol] 142 mmol/L Normal 133-145 [facility] Comment on above: Performed By: #### L 506.0400, L501.9985, L501.9520, L501.83272, L500.4050, L500.4100 #### [facility] [address] [place], [address] T PROT 7.3 g/dL Normal 5.9-8.4 [facility] Comment on above: Performed By: #### L 506.0400, L501.9985, L501.9520, L501.00463, L500.4050, L500.4100 #### [facility] [address] [place], [address] Urea nitrogen [Mass/Vol] 21 mg/dL High 4-19 [facility] Comment on above: Performed By: #### L 506.0400, L501.9985, L501.9520, L501.23668, L500.4050, L500.4100 #### [facility] [address] [place], [address] Free T3on 10-29-2024 Free T3 [Mass/Vol] 2.7 pg/mL Normal 2.18-3.98 [facility] Comment on above: Performed By: #### L 506.0400, L501.9985, L501.9520, L501.39921, L500.4050, L500.4100 #### [facility] [address] [place], [place], [id number] Free [id number] By: Bruce burciaga on 10-29-2024 Free T3 [Mass/Vol] 2.7 pg/mL 2.18-3.98 [facility] Glomerular filtration rate ( GFR) estimation/1.73 sq m using serum, plasma, or whole bOrdered By: Bruce De La Garza on 10-29-2024 GFR/1.73 sq M.predicted among non-blacks MDRD (S/P/Bld) [Vol rate/Area] 39 mL/min/{1.73_m2} Low >60 [facility] Comment on above: mL/min/1.73m2 CKD-EP I Creatinine Equation (2020) Hemoglobin A1con 10-29-2024 HbA1c (Bld) [Mass fraction] 5.7 % Normal <=5.6 [facility] Comment on above: Result Comment: Norm al < 5.7 % Prediabetic 5.7 - 6.4 % Diabetic >or= 6.5 % Please note range changes. Performed By: #### L 506.0400, L501.9985, L501.9520, L501.15172, L500.4050, L500.4100 #### [facility] [address] [place], [place], [id number] Hemoglobin A1c percentageOrd ered By: Bruce De La Garza on 10-29-2024 HbA1c (Bld) [Mass fraction] 5.7 % <5.7 [facility] Comment on above: Normal < 5.7 % Predi abetic 5.7 - 6.4 % Diabetic >or= 6.5 % Please note range changes. LDL calc ser/plasOrdered By: Bruce De La Garza on 10-29-2024 Cholesterol in LDL [Mass/Vol] 116 mg/dL [facility] Comment on above: Cfrhfxnywh=201-869 m g/dL & Higher Nnor=402 mg/dL or greaterFriedwald Equation for LDL-C Laboratory - Chemistry and C hemistry - challengeOrdered By: Bruce De La Garza on 10-29-2024 AST [Catalytic activity/Vol] 24 U/L <32 [facility] Lipid Profileon 10-29-2024 CHOL:HDL 3.13 Normal [facility] Comment on above: Performed By: #### L 506.0400, L501.9985, L501.9520, L501.32872, L500.4050, L500.4100 #### [facility] [address] [place], [address] Cholesterol [Mass/Vol] 226 mg/dL High <=200 [facility] Comment on above: Result Comment: Chol esterol level, Desirable <200 mg/dL Borderline high cholesterol 200-239 mg/dL High cholesterol >=240 mg/dL Recommendations of the NCEP Adult Treatment Panel for the following risk-cutoff thresholds for the [place] population. Performed By: #### L 506.0400, L501.9985, L501.9520, L501.04117, L500.4050, L500.4100 #### [facility] [address] [place], [place], [phone] Cholesterol in HDL [Mass/Vol] 72 mg/dL Normal [facility] Comment on above: Result Comment: Keily onal Cholesterol Education Program (NCEP) guidelines: <40 mg/dL: Low HDL-cholesterol (major risk factor for CHD) >= 60 mg/dL: High HDL-cholesterol (negative risk factor for CHD) HDL-cholesterol is affected by a number of factors, e.g. smoking, exercise, hormones, sex and age. Performed By: #### L 506.0400, L501.9985, L501.9520, L501.87722, L500.4050, L500.4100 #### [facility] [address] [place], [place], [id number] ([address]) Cholesterol in LDL [Mass/Vol] 116 mg/dL Normal [facility] Comment on above: Result Comment: Bord xdhicy=765-852 mg/dL Higher Fciq=791 mg/dL or greater Friedwald Equation for LDL-C Performed By: #### L 506.0400, L501.9985, L501.9520, L501.04249, L500.4050, L500.4100 #### [facility] [address] [place], [address] Cholesterol in VLDL [Mass/Vol] 38 mg/dL Normal 5-40 [facility] Comment on above: Performed By: #### L 506.0400, L501.9985, L501.9520, L501.94029, L500.4050, L500.4100 #### [facility] [address] [place], [address] Triglyceride [Mass/Vol] 191 mg/dL Normal [facility] Comment on above: Result Comment: The drugs N-Acetylcysteine and Metamizole may falsely depress this assay. Normal range: <150 mg/dL Borderline High: 150-199 mg/dL High: 200-499 mg/dL Very High: >500 mg/dL Performed By: #### L 506.0400, L501.9985, L501.9520, L501.13320, L500.4050, L500.4100 #### [facility] [address] [place], [address] Potassium measurement (mass/ volume)Ordered By: Bruce De La Garza on 10-29-2024 Potassium (Unsp spec) [Mass/Vol] 4.4 mmol/L 3.3-5.1 [facility] Screening total cholesterol/ high density lipoprotein (HDL) cholesterol ratioOrdered By: Bruce De La Garza on 10-29-2024 Cholesterol.total/Chol esterol in HDL [Mass ratio] 3.13 {ratio} [facility] Serum creatinine measurement (mass/volume)Ordered By: Bruce De La Garza on 10-29-2024 Creatinine [Mass/Vol] 1.46 mg/dL High 0.70-1.20 [facility] Serum globulin measurementOr dered By: Bruce De La Garza on 10-29-2024 Globulin (S) [Mass/Vol] 3.1 g/dL 2.2-4.2 [facility] Serum glucose measurement (m ass/volume)Ordered By: Bruce De La Garza on 10-29-2024 Glucose [Mass/Vol] 132 mg/dL High 70-99 [facility] Serum or plasma alanine ferrer otransferase (ALT) measurementOrdered By: Bruce De La Garza on 10-29-2024 ALT [Catalytic activity/Vol] 27 U/L <35 [facility] Serum or plasma albumin ivone urement (mass/volume)Ordered By: Bruce De La Garza on 10-29-2024 Albumin [Mass/Vol] 4.3 g/dL 3.4-4.8 [facility] Serum or plasma albumin/glob ulin mass ratioOrdered By: Bruce De La Garza on 10-29-2024 Albumin/Globulin [Mass ratio] 1.4 {ratio} 0.9-2.4 [facility] Serum or plasma alkaline tg sphatase measurementOrdered By: Bruce De La Garza on 10-29-2024 ALP [Catalytic activity/Vol] 83 U/L 35-104 [facility] Serum or plasma calcium ivone urement (mass/volume)Ordered By: Bruce De La Garza on 10-29-2024 Calcium [Mass/Vol] 10.1 mg/dL 7.6-11.0 [facility] Serum or plasma cholesterol in HDL measurement (mass/volume)Ordered By: Bruce De La Garza on 10-29-2024 Cholesterol in HDL [Mass/Vol] 72 mg/dL >40 [facility] Comment on above: National Cholesterol Education Program (NCEP) guidelines:<40 mg/dL: Low HDL-cholesterol (major risk factor for CHD)>= 60 mg/dL: High HDL-cholesterol (negative risk factor for CHD)HDL-cholesterol is affected by a number of factors, e.g. smoking, exercise, hormones, sex and age. Serum or plasma cholesterol measurement (mass/volume)Ordered By: Bruce De La Garza on 10-29-2024 Cholesterol [Mass/Vol] 226 mg/dL High <201 [facility] Comment on above: Cholesterol level, D esirable <200 mg/dLBorderline high cholesterol 200-239 mg/dLHigh cholesterol >=240 mg/dLRecommendations of the NCEP Adult Treatment Panel for the following risk-cutoff thresholds for the [place] population. Serum or plasma urea nitroge n measurement (mass/volume)Ordered By: Bruce De La Garza on 10-29-2024 Urea nitrogen [Mass/Vol] 21 mg/dL High 4-19 [facility] Sodium levelOrdered By: Bruce De La Garza on 10-29-2024 Sodium [Moles/Vol] 142 mmol/L 133-145 [facility] T4 Free Directon 10-29-2024 T4 FREE DIRECT 1.40 ng/dL Normal 0.76-1.46 [facility] Comment on above: Performed By: #### L 506.0400, L501.9985, L501.9520, L501.49561, L500.4050, L500.4100 #### [facility] [address] [place], [address] T4 freeOrdered By: Bruce burciaga on 10-29-2024 Free T4 [Mass/Vol] 1.40 ng/dL 0.76-1.46 [facility] TSH DL <= 0.005 mIU/L QnOrde red By: Bruce De La Garza on 10-29-2024 TSH Qn 4.450 uIU/mL High 0.300-4.200 [facility] Thyroid Stim Hormone (TSH)on 10-29-2024 TSH 4.450 uIU/mL High 0.300-4.200 [facility] Comment on above: Performed By: #### L 506.0400, L501.9985, L501.9520, L501.91201, L500.4050, L500.4100 #### [facility] [address] [place], [address] Total proteinOrdered By: Kerry De La Garza on 10-29-2024 Protein [Mass/Vol] 7.3 g/dL 5.9-8.4 [facility] Triglycerides measurementOrd ered By: Bruce De La Garza on 10-29-2024 Triglyceride [Mass/Vol] 191 mg/dL <199 [facility] Comment on above: The drugs N-Acetylcy steine and Metamizole may falsely depress this assay. Normal range: <150 mg/dLBorderline High: 150-199 mg/dLHigh: 200-499 mg/dLVery High: >500 mg/dL Basophil percentageOrdered B y: Flaca Bocanegra on 03-13-2023 Chloride [Moles/Vol] 109 mmol/L 98-107 [facility] Cholesterol [Mass/Vol] 186 mg/dL <200 [facility] Comment on above: <200 mg/dL Desirable 200-240 mg/dL Borderline >240 mg/dL High Risk Glucose [Mass/Vol] 133 mg/dL 74-106 [facility] Comment on above: Fasting Glucose resu lt greater than or equal to 126 mg/dL suggests DIABETES MELLITUS per A.D.A. criteria. Potassium [Moles/Vol] 4.1 mmol/L 3.5-5.1 [facility] Sodium [Moles/Vol] 142 mmol/L 136-145 [facility] Triglyceride [Mass/Vol] 224 mg/dL <199 [facility] Comment on above: The drugs N-Acetylcy steine and Metamizole may falsely depress this assay.Serum Triglycerides Reference Interval Normal <150 mg/dL Borderline high 150 - 199 mg/dL High 200 - 499 mg/dL Very High > or = 500 mg/dL Laboratory - Chemistry and C hemistry - challengeOrdered By: Flaca Bocanegra on 03-13-2023 CO2 [Moles/Vol] 25.0 mmol/L 21.0-32.0 [facility] T4 [Mass/Vol] 19.8 ug/dL 4.8-13.9 [facility] [facility] Urea nitrogen/Creatinine [Mass ratio] 17.6 mg/mg 10-20 [facility] No Panel InformationOrdered By: Flaca Bocanegra on 03-13-2023 Estimated GFR (MDRD) Amer 58 mL/min >60 [facility] Comment on above: GFR Calc Estimated GFR (MDRD) Non-Af Amer 48 mL/min >60 [facility] Comment on above: Non- GFR Calc Thyroid Stimulating Hormone (TSH) 1.11 uIU/mL 0.358-3.74 [facility] Urine Microalbumin/Creatinin e Ratio 705.9 mg/g CRE <30 [facility] Serum or plasma calcium ivone urement (mass/volume)Ordered By: Flaca Bocanegra on 03-13-2023 Calcium [Mass/Vol] 9.3 mg/dL 8.5-10.1 [facility] Serum or plasma cholesterol in HDL measurement (mass/volume)Ordered By: Flaca Bocanegra on 03-13-2023 Cholesterol in HDL [Mass/Vol] 51 mg/dL >40 [facility] Comment on above: The drugs N-Acetylcy steine and Metamizole may falsely depress this assay. Reference Range HDL <40 mg/dL Low HDL Cholesterol HDL >or= 60 mg/dL High HDL Cholesterol Serum or plasma cholesterol in VLDL measurement (mass/volume)Ordered By: Flaca Bocanegra on 03-13-2023 Cholesterol in VLDL [Mass/Vol] 45 mg/dL 5-40 [facility] Serum or plasma creatinine m easurement (mass/volume)Ordered By: Flaca Bocanegra on 03-13-2023 Creatinine [Mass/Vol] 1.19 mg/dL 0.55-1.02 [facility] Comment on above: The validity of the calculated GFR & GFRAA in patients over 70 years has not been determined. Clinical correlation is essential. Serum or plasma low density lipoprotein (LDL) cholesterol measurement (mass/volume)Ordered By: Flaca Bocanegra on 03-13-2023 Cholesterol in LDL [Mass/Vol] 90 mg/dL 0-130 [facility] Serum or plasma urea nitroge n measurement (mass/volume)Ordered By: Flaca Bocanegra on 03-13-2023 Urea nitrogen [Mass/Vol] 21 mg/dL 7-18 [facility] Thin prep Papanicolaou smear with manual screeningOrdered By: Flaca Bocanegra on 03-13-2023 Thin prep Papanicolaou smear with manual screening 8 5-15 [facility] Thin prep Papanicolaou smear with manual screening 3120.0 mg/L NO RANGE EST. [facility] Urine creatinine measurement (mass/volume)Ordered By: Flaca Bocanegra on 03-13-2023 Creatinine (U) [Mass/Vol] 442.00 mg/dL NO RANGE EST. [facility] Basophil percentageon 2021 Chloride [Moles/Vol] 104 mmol/L 98-107 [facility] Work Phone: Cholesterol [Mass/Vol] 329 mg/dL <200 [facility] Work Phone: Comment on above: <200 mg/dL Desirable 200-240 mg/dL Borderline >240 mg/dL High Risk Glucose [Mass/Vol] 151 mg/dL 74-106 [facility] Work Phone: Comment on above: Fasting Glucose resu lt greater than or equal to 126 mg/dL suggests DIABETES MELLITUS per A.D.A. criteria. Potassium [Moles/Vol] 4.0 mmol/L 3.5-5.1 [facility] Work Phone: Sodium [Moles/Vol] 139 mmol/L 136-145 [facility] Work Phone: Triglyceride [Mass/Vol] 149 mg/dL <199 [facility] Work Phone: Comment on above: The drugs N-Acetylcy steine and Metamizole may falsely depress this assay.Serum Triglycerides Reference Interval Normal <150 mg/dL Borderline high 150 - 199 mg/dL High 200 - 499 mg/dL Very High > or = 500 mg/dL Laboratory - Chemistry and C hemistry - challengeon 02-23-2022 CO2 [Moles/Vol] 25.0 mmol/L 21.0-32.0 [facility] Work Phone: Free T4 [Mass/Vol] 0.22 ng/dL 0.76-1.46 [facility] Work Phone: Urea nitrogen/Creatinine [Mass ratio] 11.7 mg/mg 10-20 [facility] Work Phone: No Panel Informationon 02-23 Estimated GFR (MDRD) Amer 46 mL/min >60 [facility] Work Phone: Comment on above: GFR Calc Estimated GFR (MDRD) Non-Af Amer 38 mL/min >60 [facility] Work Phone: Comment on above: Non- GFR Calc Free Triiodothyronine (T3) pg/dL 0.9 pg/mL 2.18-3.98 [facility] Work Phone: Thyroid Stimulating Hormone (TSH) 97.60 uIU/mL 0.358-3.74 [facility] Work Phone: Serum or plasma calcium ivone urement (mass/volume)on 02-23-2022 Calcium [Mass/Vol] 9.9 mg/dL 8.5-10.1 [facility] Work Phone: Serum or plasma cholesterol in HDL measurement (mass/volume)on 02-23-2022 Cholesterol in HDL [Mass/Vol] 100 mg/dL >40 [facility] Work Phone: Comment on above: The drugs N-Acetylcy steine and Metamizole may falsely depress this assay. Reference Range HDL <40 mg/dL Low HDL Cholesterol HDL >or= 60 mg/dL High HDL Cholesterol Serum or plasma cholesterol in VLDL measurement (mass/volume)on 02-23-2022 Cholesterol in VLDL [Mass/Vol] 30 mg/dL 5-40 [facility] Work Phone: Serum or plasma creatinine m easurement (mass/volume)on 02-23-2022 Creatinine [Mass/Vol] 1.45 mg/dL 0.55-1.02 [facility] Work Phone: Comment on above: The validity of the calculated GFR & GFRAA in patients over 70 years has not been determined. Clinical correlation is essential. Serum or plasma low density lipoprotein (LDL) cholesterol measurement (mass/volume)on 02-23-2022 Cholesterol in LDL [Mass/Vol] 199 mg/dL 0-130 [facility] Work Phone: Serum or plasma urea nitroge n measurement (mass/volume)on 02-23-2022 Urea nitrogen [Mass/Vol] 17 mg/dL 7-18 [facility] Work Phone: Thin prep Papanicolaou smear with manual screeningon 02-23-2022 Thin prep Papanicolaou smear with manual screening 10 5-15 [facility] Work Phone: Office Visiton 02-07-2017 Dietary management education, guidance, and counseling (procedure) yes Invalid Interpretation Code [facility] Work Phone: Documentation of current medications (procedure) Done Invalid Interpretation Code [facility] Work Phone: Tobacco smoking status NHIS Never Invalid Interpretation Code [facility] Work Phone: Tobacco smoking status NHIS Tobacco smoking status NHIS Invalid Interpretation Code [facility] Work Phone: Tobacco use CP Never smoker Invalid Interpretation Code [facility] Work Phone: Office Visiton 03-09-2014 Documentation of current medications (procedure) Done Invalid Interpretation Code [facility] Work Phone: Tobacco smoking status NHIS Never Invalid Interpretation Code [facility] Work Phone: Tobacco use [facility] Never smoker Invalid Interpretation Code [facility] Work Phone: Office Vis[place] 01-13-2014 Dietary management education, guidance, and counseling (procedure) yes Invalid Interpretation Code [facility] Work Phone: Vital Signs Date Time Vital Sign Value Performing Clinician Facility 02-23-2022 13:52-0500 Body height 165.1 cm [facility] Work Phone: 02-07-2017 15:28-0500 BMI (Body Mass Index) 53.62 kg/m2 [facility] Work Phone: 02-07-2017 15:28-0500 Weight 141.7 kg [facility] Work Phone: 03-09-2014 16:12-0500 Body Temperature 98.6 [degF] Eliza Garcia [facility] Work Phone: 03-09-2014 16:12-0500 BP Diastolic 88 mm[Hg] [facility] Work Phone: 03-09-2014 16:12-0500 BP Systolic 151 mm[Hg] [facility] Work Phone: 03-09-2014 16:12-0500 Pulse (Heart Rate) 99 /min [facility] Work Phone: 03-09-2014 16:12-0500 Respiratory Rate 20 /min [facility] Work Phone: 03-09-2014 16:12-[address] [facility] Work Phone: 01-13-2014 14:29-0500 BMI (Body Mass Index) 49.77 kg/m2 [facility] Work Phone: 01-13-2014 14:29-[address] [facility] Work Phone: Encounters Encounter Date Encounter Type Care Provider Facility Start: 10-29-2024 End: 10-29-[address] Bruce De La Garza MD Work Phone: [facility] [place] Start: 10-29-2024 End: 10-29-[address] Bruce De La Garza MD -[facility] Work Phone: Start: 10-29-2024 End: 10-29-2024 ambulatory Bruce De La Garza Facility:[facility] Start: 03-13-2023 End: 03-13-2023 ambulatory [facility] Work Phone: Start: 03-13-2023 End: 03-13-2023 Patient encounter procedure [facility] Work Phone: Start: 02-23-2022 End: 02-23-2022 ambulatory [facility] Work Phone: Start: 02-23-2022 End: 02-23-2022 Patient encounter procedure [facility] Plan of Treatment Date Care Activity Detail Author Start: 02-07-2017 End: 02-07-[address] [facility] Work Phone: Start: 01-13-2014 End: 01-13-2014 Radiologic exam knee complete 4/more views X-Ray, Knee [facility] Work Phone: Immunizations Immunization Date Immunization Notes Care Provider Fa cili 12-24-2013 influenza, injectabl e, quadrivalent, preservative free [facility] 12-24-2013 influenza, seasonal, injectable [facility] Work Phone: Payers Date Payer Category Payer Medicare [id number] Self-pay [id number] [facility] Unknown [id number] Self-pay SELF PAY ER DEPOSIT [id number] Unknown [facility] [id number] Unknown MMO/[employer] [id number] Unknown [id number] Social History Date Type Detail Facility [facility]: [facility]-2019 [facility] Start: 12-26-2019 None [place] [facility] Start: 12-26-2019 Alone [place] [facility] Start: 12-26-2019 Non-smoker [facility] Start: 1955 Sex Assigned At Female [facility] Start: 12-26-2019 Tobacco smoking stat us NHIS Never smoked tobacco (finding) [facility] Evaluation note Note Date & Type Note Facility Evaluation note No assessment information availa ble [facility] Work Phone: Reason for referral (narrative) Note Date & Type Note Facility Reason for referral (narrative) No reason for referral information available [facility] Work Phone: Family History No Family History Records Found Relationship Condition Age at Onset Recorded Date/T jayro Unknown Family History?No pe rtinent history Unknown December 22, 2013 5:12am Family History?No pe rtinent history Unknown December 22, 2013 5:12am Relationship Condition Age at Onset Recorded Date/T jayro Unknown Family History?No pe rtinent history Unknown December 22, 2013 6:12am Family History?No pe rtinent history Unknown December 22, 2013 6:12am Advance Directives No Advanced Directives Records Found Advance Directive Response Recorded Date/ Time Advance Directives No December 22, 2013 6:01am Living Will No December 24 11:04pm Power of Credit Department Manager No December 25, 2019 11:04pm Advance Directive Response Recorded Date/ Time Advance Directives No December 22, 2013 7:01am Summary Purpose Additional Source Comments Goals (unrecognized section and content) Goals may be documented in a n alternate sectionGoals may be documented in an alternate sectionGoals may be documented in an alternate section Care Teams (unrecognized sec tion and content) Team Status: Active Member Role Status Dates Dr. Bruce De La Garza MD Family Provider Active Dr. Bruce De La Garza MD Primary Care Provider Active Team Status: Inactive Member Role Status Dates Dr. Bruce De La Garza MD Primary Care Provider Active Dr. Flaca Bocanegra MD Attending Provider, Referring Carlos ortiz Active Team Status: Active Member Role/Relationship Status Dates Dr. Bruce De La Garza MD Family Provider Active Dr. Bruce De La Garza MD Primary Care Provider Active Team Status: Inactive Member Role/Relationship Status Dates Dr. Bruce De La Garza MD Primary Care Provider Active Start: October 29, 2024 End: October 29, 2024 Dr. Bruce De La Garza MD Attending Provider Active Start: October 29, 2024 End: October 29, 2024 Dr. Bruce De La Garza MD Referring Provider Active Start: October 29, 2024 End: October 29, 2024 INFORMATION SOURCE (unrecogn ized section and content) DATE CREATED AUTHOR 11/07/2024 [facility] FOR RECORDS PERTAINING TO PATIENTS WHO ARE [...] BE BASED ON THE PRIMARY CLINICAL RECORDS. [employer] provides no warranty or guarantee of the accuracy or completeness of information in this document.
== END | disposition home or self-care (01) ==
PROVIDERS: PCP Family Medicine; Referring Provider Family Medicine; Visit Provider Family Medicine
DX: Z12.31 Encounter for screening mammogram for malignant neoplasm of breast (principal)
CPT/HCPCS: 77063; 77067